=== PATIENT | male | born 1970 | race Caucasian/White ===

== ENCOUNTER 2018-02-25 13:47 | Emergency (ER) | payer OTHER ==
[~2018-02-25] VITALS: Ht 180.3 cm; Wt 79.4 kg
[~2018-02-25 13:47] MED LIST: ACET-8386 PO; CEPH250C16 PO
[2018-02-25 13:50] VITALS: BP 151/99
[2018-02-25] MEDS: IBUPROFEN 600 MG TAB PO ONE (14:27)
[2018-02-25 15:45] VITALS: BP 145/89
== END 2018-02-25 15:45 | disposition home or self-care (01) ==
LOC: MED 13:47
DX: S93.601A Unspecified sprain of right foot, initial encounter (principal); Z79.899 Other long term (current) drug therapy; X58.XXXA Exposure to other specified factors, initial encounter; Y93.89 Activity, other specified; Y92.89 Other specified places as the place of occurrence of the external cause; Y99.8 Other external cause status
CPT/HCPCS: 73630; 99284; Q0092

== ENCOUNTER 2023-03-06 10:40 | Emergency (ER) | payer OTHER ==
[~2023-03-06] VITALS: Ht 175.3 cm; Wt 81.6 kg
[~2023-03-06 10:40] MED LIST changes: -ACET-8386 PO; +ACET-8905 PO
[2023-03-06 11:22] VITALS: BP 138/105; PULSE 80; RESP 18; TEMP 98.2; O2SAT 100
[2023-03-06] MEDS: IBUPROFEN 600 MG TAB PO ONE (12:00)
[2023-03-06] MEDS ORDERED: NAPR-1704 PO (13:17)
[2023-03-06] MEDS ORDERED: TRAM50TA3 PO (13:17)
[2023-03-06 13:43] VITALS: BP 109/78; PULSE 89; RESP 16; TEMP 97.8; O2SAT 98
[2023-03-06] MEDS ORDERED: IBUPROFEN 600 MG TAB ONE (13:45)
== END 2023-03-06 13:45 | disposition home or self-care (01) ==
LOC: MED 10:40
DX: M13.871 Other specified arthritis, right ankle and foot (principal); Z79.899 Other long term (current) drug therapy
CPT/HCPCS: 73610; 73630; 99284